=== PATIENT | female | born 1980 | race Caucasian/White ===

== ENCOUNTER 2016-04-06 06:58 | Emergency (ER) | payer SELFPAY ==
[2016-04-06 07:10] VITALS: BMI 18.5
--- NOTE | 2016-04-06 07:22 | EDPRACDOC ---
- General Information Chief Complaint: Elbow Pain Stated Complaint: ELBOW PAIN Time Seen by Provider: 04/06/16 07:16 Information Source: Patient Home Medications: Home Medications Cephalexin Monohydrate [Keflex] 500 mg PO Q8H #30 cap 04/06/16 Oxycodone HCl/Acetaminophen [Percocet 5-325 mg Tablet] 1 each PO Q4 #20 tablet 04/06/16 Quetiapine Fumarate [Seroquel] 150 - 300 mg PO QHS 04/06/16 Sulfamethoxazole/Trimethoprim [Bactrim Ds Tablet] 1 tab PO BID #20 tab 04/06/16 Allergies/Adverse Reactions: Allergies Allergy/AdvReac Type Severity Reaction Status Date / Time No Known Allergies Allergy Verified 04/06/16 07:10 - History of Present Illness Onset: last week HPI: PATIENT APPEARS TO HAVE HX OF DRUG USE. COMPLAINS OF LEFT ELBOW PAIN WITH AN INABILITY TO STRAIGHTEN THE ARM. NO FEVER. PAIN ALONG LEFT BICEPS TENDONS AND MEDIAL CONDYLE Location: Reports: Medial Dominant Side: Reports: Right Circumstances: Reports: Spontaneous Relevant History: Reports: None Tetanus Up To Date?: Yes Pain Severity: Reports: Moderate Ability to Move Elbow: Limited Associated Signs and Symptoms: Reports: Swelling. Denies: Fever ED Past Medical History - History Reviewed Yes Nurses notes reviewed and agree except as marked Travel Outside of [place] in the Last 3 Months?: No - Patient Medical History Respiratory History: Reports: Asthma Psychological History: Reports: Depression - Social Medical History Smoking Status: Heavy tobacco smoker (5 or more cigarettes/day or daily pipe/ cigar) ETOH: None Substance Abuse: None Lives With: Family Lives In: Home EDM Review of Systems - Review of Systems ROS Negative Except as Marked: Yes All systems reviewed and were negative except as marked Constitutional: No Symptoms Reported. negative: Fever, Chills, Weakness, Fatigue, Loss of Appetite Eyes: No Symptoms Reported. negative: Redness, Blurred Vision, Double Vision, Discharge, Pain, Light Sensitive, Photophobia Ears: No Symptoms Reported. negative: Pain, Hearing Loss, Drainage, Ear Pulling Throat: No Symptoms Reported. negative: Pain, Swelling Nose: No Symptoms Reported. negative: Congestion, Bleeding, Discharge, Injection, Swelling, Deformity, Ecchymosis, Tender, Abrasion, Laceration Mouth: No Symptoms Reported. negative: Pain, Drooling Respiratory: No Symptoms Reported. negative: Cough, Brassy Cough, Barky Cough, Shortness of Breath, Wheezing, Hemoptysis Cardiovascular: No Symptoms Reported. negative: Chest Pain, Palpitations, Syncope, Edema, Orthopnea, PND, Skin Mottling, Cyanosis Gastrointestinal: No Symptoms Reported. negative: Pain, Constipation, Nausea, Vomiting, Diarrhea, Melena, Formula Intolerance Genitourinary: No Symptoms Reported. negative: Dysuria, Hematuria, Frequency, Discharge, Bleeding, Testicular Pain, Neurological: No Symptoms Reported. negative: Headache, Dizziness, Seizure, Numbness, Weakness, Speech Difficulty, Gait Difficulty Musculoskeletal: Elbow (SWELLING). negative: Arm, Ankle, Back, Chestwall, Forearm, Femur, Foot, Hand, Hip, Knee, Leg, Neck, Pelvis, Ribs, Shoulder, Wrist Integumentary: No Symptoms Reported. negative: Itching, Rash, Bruising, Wound Allergic/Immunologic: No Symptoms Reported. negative: Hives, Itching Hematologic: No Symptoms Reported. negative: Lymphadenopathy, Easy Bruising, Easy Bleeding Endocrine: No Symptoms Reported. negative: Weight Gain, Weight Loss Psychiatric: No Symptoms Reported. negative: Anxiety, Depression, Hallucinations, Insomnia, Suicidal - Physical Exam Constitutional: Alert (Awake) Oriented to: Time, Person, Place Last recorded Vital Signs: Last Vital Signs Temp 97.8 F 04/06/16 07:05 Pulse 79 04/06/16 07:05 Resp 18 04/06/16 07:05 BP 115/56 L 04/06/16 07:05 Pulse Ox 96 04/06/16 07:05 Oxygen Pulse Oxygen Saturation 96 O2 Device Room Air Oxygen Flow Rate Fraction of Inspired Oxygen ( FIO2) - HEENT Head: Normal ( normocephalic) Eye Exam: Normal (PERRL, EOMI, Sclera white) Oropharynx: Normal (Pharynx:Moist without exudate,Gums-no swelling) Tympanic Membrane: Normal ENT EAC: Normal TMJ: Normal Nose: No Symptoms Reported (septum midline) Neck: Normal (FROM, trachea at midline) - Respiratory/Cardiovascular Respiratory: Normal - CTA (BBS clear to auscultation without adventitious sounds ) Cardiovascular: Normal (RRR without murmur, gallop or rub) - GI Auscultation: Normal (NABS) Palpation: Normal (Soft,No rebound or guarding, non distended) Tenderness: Non tender Moran's Sign: Negative - Bladder: Normal - Musculoskeletal Back: Normal (Non-Tender) Extremities: Other (SWELLING AND TENDERNESS ON LEFT ELBOW OVER MEDIAL CONDYLE. CONTRACTURE OF BICEPS TENDON AND TENDERNESS IN THIS REGION. LIMITED ROM DUE TO PAIN. NO REDNESS. SWELLING) - Integumentary Skin: Normal, Warm, Dry Lymphatics: Normal (no adenopathy) - Neurologic Memory Impaired: Normal Motor Function: Normal (Normal tone, Pulses 2+ No cyanosis or edema, FROM) Cranial Nerve: Normal (CN II-X11 intact sensation, strength 5/5) Cerebellar: Normal Mood Description: Normal Perception: Normal Decision Time to Discharge: 08:55 - Departure Yes I personally saw and evaluated the patient. Disposition: Home Condition: Good Final Diagnosis: Biceps tendonitis Qualifiers: Laterality: left Qualified Code(s): M75.22 - Bicipital tendinitis, left shoulder Instructions: RICE: Routine Care for Injuries Education/Counseling Given To: Patient Education/Counseling Given Regarding: Diagnosis, Treatment, Prognosis, Follow Up Referrals: None,No Provider [Primary Care Provider] - One Week Monster Tenorio DO [Staff Physician] - One Week Prescriptions: Cephalexin Monohydrate [Keflex] 500 mg PO Q8H #30 cap Oxycodone HCl/Acetaminophen [Percocet 5-325 mg Tablet] 1 each PO Q4 #20 tablet Sulfamethoxazole/Trimethoprim [Bactrim Ds Tablet] 1 tab PO BID #20 tab
[2016-04-06] MEDS ORDERED: OXYCODONE HCL 5 MG TABLET PO ONE (07:55)
--- NOTE | 2016-04-06 08:53 | DIRPT ---
CLINICAL DATA: 35-year-old female with left elbow pain for 1 week, following door injury. Insert initial EXAM: CT OF THE UPPER LEFT EXTREMITY WITHOUT CONTRAST TECHNIQUE: Multidetector CT imaging of the left elbow was performed according to the standard protocol. COMPARISON: None. FINDINGS: There is no evidence of acute fracture, subluxation or dislocation. No focal bony lesions are identified. The joint space is unremarkable. There is edema within the distal biceps muscle at the musculotendinous junction and injury or myositis/tendinitis may be present. MRI recommended further evaluation. IMPRESSION: Edema within the distal biceps muscle of the musculotendinous junction-question injury/myositis/tendinitis. Infection/abscess is a concert aeration. MR is recommended for further evaluation. No evidence of bony or joint abnormality. Electronically Signed By: Ayaz Miller M.D. On: 04/06/2016 08:50
[2016-04-06 09:07] VITALS: BP 121/69; PULSE 74
[2016-04-06 09:09] VITALS: TEMP 98.4
== END 2016-04-06 09:07 | disposition home or self-care (01) ==
LOC: ED 06:58
DX: M75.22 Bicipital tendinitis, left shoulder (principal)
CPT/HCPCS: 73200; 99283; J3490